=== PATIENT | male | born 1975 | race Caucasian/White ===

== ENCOUNTER → 2021-04-17 12:31 | Outpatient (CLI) | payer OTHER, SELFPAY ==
--- NOTE | ~2021-04-17 | XR_ITS ---
EXAMINATION: XR lumbar spine min 4V DATE: 04/17/2021 14:07 INDICATION: Low back pain TECHNIQUE: Anteroposterior, lateral, and bilateral oblique views of the lumbar spine, and cone-down l ateral view of the lumbosacral junction were obtained. COMPARISON: None. FINDINGS: There are changes of anterior and posterior fusion at L4-5. Screw remnants are present in t he S1 vertebral body. Bone alignment is normal. There is no fracture. The vertebral body heights are maintained. There is loss of intervertebral disc space height at L4-5 and L5-S1. Surgical clips are p resent in the left pelvis. Catheter tubing coils in the central spinal canal in the upper lumbar spin e. IMPRESSION: 1. No acute osseous abnormality. Reviewed, dictated and finalized at location A.
== END ==
PROVIDERS: Visit Provider Physician Assistant
DX: M54.16 Radiculopathy, lumbar region (principal); M96.1 Postlaminectomy syndrome, not elsewhere classified
CPT/HCPCS: 72110

== ENCOUNTER 2021-04-26 13:08 | Outpatient (CLI) | payer OTHER, SELFPAY ==
--- NOTE | ~2021-04-26 | MR_ITS ---
EXAMINATION: MR lumbar spine wo/w con DATE: 04/26/2021 14:19 INDICATION: Lumbar radiculopathy. Low back pain. Bilateral leg pain. TECHNIQUE: Magnetic resonance imaging (MRI) of the lumbar spine was performed without and with 20 mL MultiHance intravenous contrast. Sequences included sagittal T2-weighted FSE, sagittal STIR FSE, and sagittal and axial T1-weighted FSE. Postcontrast sequences included axial T2-weighted FSE and axial a nd sagittal T1-weighted FS FSE. COMPARISON: Lumbar spine radiographs 04/17/2021 FINDINGS: There is 3 mm retrolisthesis of L3 on L4. There are changes of anterior fusion procedure at L4-L5 with interbody device and anterior plate and screws. There are changes of posterior fusion pro cedure at L4-L5 with pedicle screws. There are old screw fragments in S1 vertebral body. Vertebral mary dy heights are normal. There is moderately decreased disc height at L5-S1. The distal spinal cord sig nal intensity is normal. The conus medullaris is at L1. The following disc levels are specifically di scussed: L1-L2: The disc does not extend beyond the endplate margin. There is mild bilateral facet joint osteo arthritis. There is no neural foraminal stenosis. There is no central canal stenosis. L2-L3: The disc does not extend beyond the endplate margin. There is mild bilateral facet joint osteo arthritis. There is no neural foraminal stenosis. There is no central canal stenosis. L3-L4: The disc does not extend beyond the endplate margin. There is mild bilateral facet joint hyper trophy. There is mild bilateral neural foraminal stenosis. There is no central canal stenosis. L4-L5: There is no facet joint hypertrophy. There is no neural foraminal stenosis. There is no centra l canal stenosis. L5-S1: There is a central protrusion with annular fissure. There is moderate bilateral facet joint hy pertrophy. There is mild bilateral neural foraminal stenosis. There is mild central canal stenosis. IMPRESSION: 1. Mild lumbar spondylosis. 2. Anterior and posterior fusion procedures at L4-L5. Reviewed, dictated and finalized at location A.
[2021-04-26 13:41] LABS: Estimated Glomerular Filt Rate > 60
== END 2021-04-26 13:09 ==
PROVIDERS: Visit Provider Physician Assistant
DX: M47.26 Other spondylosis with radiculopathy, lumbar region (principal); M96.1 Postlaminectomy syndrome, not elsewhere classified; Z98.1 Arthrodesis status
CPT/HCPCS: 72158; A9577